=== PATIENT | male | born 1955 | race Caucasian/White ===

== ENCOUNTER 2022-09-11 13:56 | Outpatient (CLI) | payer MEDICARE | END 2022-09-11 13:57 | disposition home or self-care (01) | LOC: TBSIIMAG 13:56 | PROVIDERS: ATTEND Neurological Surgery | DX: M47.812 Spondylosis without myelopathy or radiculopathy, cervical region (principal); M50.31 Other cervical disc degeneration, high cervical region; M43.12 Spondylolisthesis, cervical region; M43.22 Fusion of spine, cervical region; M48.02 Spinal stenosis, cervical region | CPT/HCPCS: 72141 ==